=== PATIENT | female | born 1970 | race Caucasian/White ===

== ENCOUNTER → 2022-01-03 | Outpatient (CLI) | payer BC | LOC: M LABSMTC 10:21 | PROVIDERS: ATTEND Anesthesiology | DX: Z01.818 Encounter for other preprocedural examination (principal); Z11.52 Encounter for screening for COVID-19 ==

== ENCOUNTER 2022-01-08 08:11 | Day surgery (SDC) | payer BC ==
[~2022-01-08] VITALS: Ht 160 cm; Wt 70.3 kg
[~2022-01-08 08:11] MED LIST: NS 1,000 ML IV ONE
[2022-01-08] MEDS ORDERED: propofoL 200 MG/20 ML VIAL As Ordered ONE ×2 (09:30→09:46)
[2022-01-08] MEDS ORDERED: LIDOCAINE 2% 100MG/5ML SDV (FOR ANES.) As Ordered ONE (09:30)
[2022-01-08 10:15] VITALS: BP 135/78
== END 2022-01-08 10:28 | disposition home or self-care (01) ==
LOC: M OPP 08:11
PROVIDERS: ATTEND Internal Medicine Gastroenterology
DX: Z12.11 Encounter for screening for malignant neoplasm of colon (principal); Z80.0 Family history of malignant neoplasm of digestive organs; K63.3 Ulcer of intestine; K63.5 Polyp of colon; K57.30 Diverticulosis of large intestine without perforation or abscess without bleeding; K64.8 Other hemorrhoids; Z80.7 Family history of other malignant neoplasms of lymphoid, hematopoietic and related tissues; Z91.040 Latex allergy status; Z91.048 Other nonmedicinal substance allergy status; F17.210 Nicotine dependence, cigarettes, uncomplicated

== ENCOUNTER → 2022-06-18 | Outpatient (CLI) | payer BC | LOC: M WHC 13:10 | DX: R10.2 Pelvic and perineal pain (principal) ==